=== PATIENT | male | born 1970 | race Caucasian/White ===

== ENCOUNTER 2024-08-03 17:02 | Emergency (ER) | payer OTHER, SELFPAY ==
[2024-08-03 17:27] VITALS: BP 125/81; PULSE 63; TEMP 37; O2SAT 97; BMI 43.4
--- NOTE | 2024-08-03 17:49 | ED.GENADUL1 ---
HPI HPI - General Adult General Chief complaint: Headache Stated complaint: Hypertension Time Seen by Provider: 08/03/24 17:30 Source: patient and family Mode of arrival: walk-in Limitations: no limitations History of Present Illness HPI narrative: This patient is here with his to be evaluated for high blood pressure. Today he went to work feeling fine. While at work this afternoon he said he was standing there and all of a sudden he started feeling dizzy. He said it felt like his head or the room was spinning around and around. He had a sit down at that time. He has not had any recent head trauma or injury recently. He does not have any neck pain. He did not have an explosive headache or severe pain in his neck at the time. He had no double vision dysarthria or dysphagia. He had no difficulty with coordination of his hands and his legs. He went home and his blood pressure was elevated. He called his primary care doctor who advised him to go to the hospital. He is under the care of a [place] board certified orthotist and had a recent stress test that was normal. He has not had any bypass grafts or stents. He believes his lipid profile has been normal. He does not have diabetes. He is not on blood pressure meds. On arrival here in the ER his blood pressure is normal and he did not take any medication. He has not had any escalation of any neurological symptoms at all. He does have some noise in his ears at all times but does not have any new tinnitus today. Related Data Home Medications ?Medication ?Instructions ?Recorded ?Confirmed No Known Home Medications 08/03/24 08/03/24 Allergies Allergy/AdvReac Type Severity Reaction Status Date / Time No Known Drug Allergies Allergy Verified 08/03/24 17:26 Opioid HPI Opioid Management Most Recent Opioid Data: No Data to Display Exam Narrative Exam Narrative: Patient is awake alert very pleasant as . Vitals are stable he has no high blood pressure at this time. Neurological examination was done in detail appearing attention of cerebellar symptoms. His cranial nerves II through XII are normal there is end-stage nystagmus with lateral gaze. It is horizontal there is no vertical or rotatory component. Pupillary light response is normal. There is no facial asymmetry. Rapid alternating movements are normal. [id number] is normal. Fine motor skills upper extremities are normal. Romberg sign is negative. Both TMs are well-visualized with small amount of wax the TMs are normal. Hearing is intact. Neck is soft and supple there is no carotid bruits. Heart sounds are normal with no clicks rubs gallops or murmur. Lungs are clear no wheeze rales or rhonchi. Ambulation and gait are equally normal. Constitutional Vital Signs, click to edit/add: Last Vital Signs Temp 98.6 F 08/03/24 17:27 Pulse 63 08/03/24 17:27 Resp 16 08/03/24 17:27 BP 125/81 08/03/24 17:27 Pulse Ox 97 08/03/24 17:27 Course Vital Signs Vital signs: Vital Signs Temperature 98.6 F 08/03/24 17:27 Pulse Rate 63 08/03/24 17:27 Respiratory Rate 16 08/03/24 17:27 Blood Pressure 125/81 08/03/24 17:27 Pulse Oximetry 97 08/03/24 17:27 Temperature 98.6 F 08/03/24 17:27 Pulse Rate 63 08/03/24 17:27 Respiratory Rate 16 08/03/24 17:27 Blood Pressure 125/81 08/03/24 17:27 Pulse Oximetry 97 08/03/24 17:27 Medical Decision Making MDM Narrative Medical decision making narrative: This patient had an onset of vertigo with symptoms including blood pressure at home that is now completely resolved and his neurological examination and vital signs here are stable. He did not have any cardiovascular symptoms and is actually been cleared by his [place] board certified orthotist recently. I think his symptoms are most consistent with vestibular dysfunction. Do not believe he would benefit from CT imaging at this time. We did talk about preventative medicine and lifestyle Is to promote longtime health and wellbeing Discharge Plan Discharge Chief Complaint: Headache Clinical Impression: Vertigo Patient Disposition: Home, Self-Care Time of Disposition Decision: 17:54 Prescriptions / Home Meds: No Action No Known Home Medications Print Language: Slovak Additional Instructions: Follow up with primary care doctor for further diagnostic testing is warranted Referrals: EUNICE DE LA GARZA [Primary Care Provider] - 1 week
[2024-08-03 18:06] VITALS: BP 110/80; PULSE 63; O2SAT 96
== END 2024-08-03 18:08 | disposition home or self-care (01) ==
PROVIDERS: Emergency Provider Emergency Medicine Emergency Medical Services; PCP Family Medicine
DX: R42 Dizziness and giddiness (principal)
CPT/HCPCS: 99281